=== PATIENT | female | born 1950 | race Caucasian/White ===

== ENCOUNTER 2016-06-02 11:34 | Emergency (ER) | payer MEDICARE, OTHER ==
[~2016-06-02 11:34] MED LIST: DOXYCYCLINE HY100 M3 PO; MACRODANTIN100 MG; PRINIVIL5 M1 PO; SEPTRA DS TABLE1 TAB PO; ZOFRAN4 M2 PO
[2016-06-02] MEDS ORDERED: DICLOFENAC SODI50 M1 PO (12:14)
[2016-06-02] MEDS ORDERED: AMOXICILLIN875 M1 PO (12:15)
== END 2016-06-02 14:22 ==
LOC: EDMED 11:34
DX: G43.909 Migraine, unspecified, not intractable, without status migrainosus (principal); G25.71 Drug induced akathisia; T43.3X5A Adverse effect of phenothiazine antipsychotics and neuroleptics, initial encounter; I10 Essential (primary) hypertension; R11.2 Nausea with vomiting, unspecified
CPT/HCPCS: J0780; J1200; J1885; J7030